=== PATIENT | female | born 1985 | race Two or more races ===

== ENCOUNTER 2017-12-26 12:04 | Day surgery (SDC) | payer OTHER ==
[2017-12-23 10:46] LABS: ALANINE AMINOTRANSFERASE 25 U/L (12-78); ALBUMIN 3.3 g/dL (3.4-5.0); ANION GAP 3 mmol/L (5-15); CALCIUM 7.9 mg/dL (8.5-10.1); CHLORIDE 107 mmol/L (98-107); CREATININE 0.63 mg/dL (0.55-1.02)
[2017-12-23 10:49] LABS: ALKALINE PHOSPHATASE 75 U/L (45-117); BILIRUBIN,TOTAL 0.4 mg/dL (0.2-1.0); TOTAL PROTEIN 7.4 g/dL (6.4-8.2)
[~2017-12-26] VITALS: Ht 160 cm; Wt 110.1 kg
[~2017-12-26 12:04] MED LIST: LISI-170 PO; METF500T4 PO; SPIR25TA3 PO
[2017-12-26] MEDS ORDERED: CHOL500050 PO (12:46)
[2017-12-26] MEDS ORDERED: LACTATED RINGERS 1,000 ML IV SCH (12:48)
[2017-12-26 13:12] LABS: HCG UR SG 1.022 (1.003-1.030)
[2017-12-26] MEDS ORDERED: EPINEPHRINE 1 MG/ML, 1ML ONE (13:29)
[2017-12-26] MEDS ORDERED: BUPIVACAINE/PF 0.25% ONE (13:29)
[2017-12-26] MEDS ORDERED: NEOMY/POLYMYXIN B GU IRR. 1 ML IRRIG ONE ×2 (13:30→14:36)
[2017-12-26] MEDS ORDERED: FENTANYL PF 100 MCG/2ML ONE ×2 (13:36→15:34)
[2017-12-26] MEDS ORDERED: MIDAZOLAM 1 MG/ML, 2ML ONE (13:36)
[2017-12-26] MEDS ORDERED: SUCCINYLCHOLINE 20 MG/ML, 10ML ONE (13:48)
[2017-12-26] MEDS ORDERED: CEFAZOLIN 1,000 MG ONE (13:48)
[2017-12-26] MEDS ORDERED: DEXAMETHASONE 4 MG/ML, 1ML ONE (13:48)
[2017-12-26] MEDS ORDERED: NEOSTIGMINE 1 MG/ML, 10ML ONE (13:48)
[2017-12-26] MEDS ORDERED: PROPOFOL 10 MG/ML, 20ML ONE (13:48)
[2017-12-26] MEDS ORDERED: ROCURONIUM 10 MG/ML,10ML ONE (13:48)
[2017-12-26] MEDS ORDERED: ONDANSETRON 2MG/ML, 2ML ONE (13:48)
[2017-12-26] MEDS ORDERED: GLYCOPYRROLATE 0.2MG/1ML, 5ML ONE (13:48)
[2017-12-26] MEDS ORDERED: PROPOFOL 10 MG/ML, 50ML ONE (13:50)
[2017-12-26] MEDS ORDERED: ACETAMINOPHEN 325 MG TABLET PO PRN (14:30)
[2017-12-26] MEDS ORDERED: KETOROLAC 30 MG/1 ML IM PRN ×2 (14:30)
[2017-12-26] MEDS ORDERED: OXYcodone 5 MG/5 ML ORAL.SOL UDC PO PRN (14:30)
[2017-12-26] MEDS ORDERED: morphine SULFATE 10 MG/ML, 1ML IV PRN (14:30)
[2017-12-26] MEDS ORDERED: HYDROcodone/APAP 7.5-325MG/15ML UDC PO PRN (14:30)
[2017-12-26] MEDS ORDERED: HYDROmorphone 1 MG/ML, 1ML IV PRN ×2 (14:30→19:30)
[2017-12-26] MEDS ORDERED: KETOROLAC 30 MG/1 ML IV PRN ×3 (14:30→19:30)
[2017-12-26] MEDS ORDERED: BUPIVACAINE/PF 0.25% INFIL ONE (14:35)
[2017-12-26] MEDS ORDERED: EPINEPHRINE 1 MG/ML, 1ML INFIL ONE (14:37)
[2017-12-26] MEDS ORDERED: ESMOLOL 100 MG/10 ML ONE (14:46)
[2017-12-26] MEDS ORDERED: BUPIVACAINE 0.25% ONE (14:51)
[2017-12-26] MEDS ORDERED: HYDROcodone/APAP 7.5-325MG/15ML UDC ONE (15:34)
[2017-12-26] MEDS: FENTANYL PF 100 MCG/2ML IV PRN ×2 (15:40→15:54)
[2017-12-26 19:00] VITALS: BP 105/65
[2017-12-26] MEDS ORDERED: metFORMIN 500 MG TABLET PO SCH (19:18)
[2017-12-26] MEDS ORDERED: OXYcodone/APAP 5/325MG TABLET PO PRN (19:30)
[2017-12-26] MEDS ORDERED: LISINOPRIL MC SCH (19:30)
[2017-12-26] MEDS ORDERED: IBUPROFEN 600 MG TABLET PO PRN (19:30)
[2017-12-26] MEDS ORDERED: ONDANSETRON 2MG/ML, 2ML IV PRN (19:30)
[2017-12-27] MEDS ORDERED: SPIRONOLACTONE 25 MG TABLET PO SCH (09:00)
== END 2017-12-26 20:00 | disposition home or self-care (01) ==
LOC: OUT 12:04 → 4NOR 19:02 → OUT 20:00
PROVIDERS: ATTEND Obstetrics & Gynecology Female Pelvic Medicine and Reconstructive Surgery
DX: D25.9 Leiomyoma of uterus, unspecified (principal); N92.1 Excessive and frequent menstruation with irregular cycle; N94.6 Dysmenorrhea, unspecified; N39.3 Stress incontinence (female) (male); N81.89 Other female genital prolapse; I10 Essential (primary) hypertension; E11.9 Type 2 diabetes mellitus without complications; E55.9 Vitamin D deficiency, unspecified; E28.2 Polycystic ovarian syndrome; N32.81 Overactive bladder; Z79.84 Long term (current) use of oral hypoglycemic drugs
CPT/HCPCS: 36415; 49320; 57265; 57282; 57288; 58558; 80053; 81025; 88305; C1771; J0171; J0330; J0690; J1100; J1885; J2250; J2405; J2704; J2710; J3010; J3490; J7120